=== PATIENT | male | born 2000 | race Caucasian/White ===

== ENCOUNTER 2022-05-31 15:26 | Emergency (ER) | payer SELFPAY ==
[2022-05-31 15:27] VITALS: BP 148/93; PULSE 108; RESP 18; TEMP 35.7; O2SAT 100; BMI 20.5
--- NOTE | 2022-05-31 17:04 | EX.ED.DYSGE1 ---
HPI History of Present Illness Chief Complaint: Nosebleed Narrative Narrative: Patient presents with epistaxis that began earlier this morning. He states that mucus coming out of his nose over the last few days. He denies any recent trauma. He does not take blood thinners. He denies any significant past medical history. This morning he had a nosebleed out of his right nares. He thinks it stopped around noon. Then later on this afternoon, he began having bleeding out of his left nares. He denies any other bleeding diathesis. No problem with easy bruising. PFSH PFSH Allergy/AdvReac Type Severity Reaction Status Date / Time No Known Allergies Allergy Verified 05/31/22 15:27 ROS ROS ED ROS Narrative Constitutional: No fever, no chills. HEENT: No sore throat. No neck pain. No loss of vision. No rhinorrhea. Positive epistaxis. Started out of right nares, now out of left nares. Cardiovascular: No chest pain. No palpitations. No pedal edema. Respiratory: No cough, no shortness of breath. Abdominal: No abdominal pain. No nausea. No vomiting. Genitourinary: No dysuria. No hematuria. Musculoskeletal: No myalgias. No arthralgias. Neurologic: No headaches. No dizziness. No lightheadedness. Skin: No rash. No change in color. Psychiatric: No depression. No anxiety. EXAM Physical Exam Narrative Exam Narrative: Afebrile. Vital signs noted. HEENT: Normocephalic. Atraumatic. PERRL, EOMI. Neck soft and supple. No point tenderness or step off. Nasal clamp in place. No posterior pharynx bleeding actively. No bleeding out of nares noted, but dried blood around both. Cardiovascular: Regular rate and rhythm. No murmurs, rubs, or gallops appreciated. Respiratory: No tachypnea. Lungs clear to auscultation bilaterally. Gastrointestinal: Abdomen soft, nontender, with normoactive bowel sounds. No rebound or guarding. Neurological: Awake. Alert. Nonfocal, nonlateralizing. Skin: No rash. Normal color. No pallor. Musculoskeletal: No pedal edema. Full range of motion extremities. Const Vital Signs: 05/31/22 15:27 Temperature 96.3 F L Temperature Source Temporal Pulse Rate 108 H Respiratory Rate 18 Blood Pressure 148/93 H Blood Pressure Mean 111 Pulse Ox 100 Oxygen Delivery Method Room Air MDM MDM MDM Narrative Medical decision making narrative: Nasal clamp was removed. Nasal passages were cleared of clots by patient blowing nose. Currently, there is no active bleeding. Patient would like to refrain from nasal packing currently. He will be rechecked in 10 to 15 minutes as he has been wearing the nasal clamp for a while to achieve hemostasis. As long as there is no rebleed, I do feel he can be discharged home to follow-up with ENT as needed. Additionally, he can follow-up with a primary care physician as needed. When the RN was speaking with the patient, he started having some dripping of blood from his right nares. The nasal clamp was reapplied. I ordered supplies to perform nasal packing. However, when I rechecked the patient, he had his nasal clamp off, and preferred not to have his right nares packed. At this point in time, I do feel he can be discharged safely home with follow-up. He was told to return with increased bleeding, especially if it does not stop with the nasal clamp he was given. He was told of the risk of rebleed and acknowledges an understanding. Disposition is discharged home in stable condition. Discharge Plan Triage Chief Complaint: Nosebleed ED Provider: Maxx Bob Dx/Rx/DC Orders Clinical Impression: Epistaxis Instructions: ED Epistaxis (Adult) Primary Care Provider: Jose Burkett Referrals: Jose Burkett MD [Primary Care Provider] - 3-5 Days if not improving Elijah Grady MD [Med Staff - Active Staff] - As Needed Disposition Disposition: Home, Self Care
== END 2022-05-31 17:58 | disposition home or self-care (01) ==
PROVIDERS: Emergency Provider Emergency Medicine; PCP Pediatrics; Visit Provider Emergency Medicine
DX: R04.0 Epistaxis (principal)
CPT/HCPCS: 99282